=== PATIENT | female | born 1945 | race Caucasian/White ===

== ENCOUNTER 2021-12-09 18:12 | Emergency (ER) | payer MEDICARE, OTHER ==
[~2021-12-09] VITALS: Ht 152.4 cm; Wt 76.4 kg
[2021-12-09 18:45] VITALS: BP 197/78
[2021-12-09] MEDS ORDERED: TETanus/Pertussis (Acell)/Diphther VAC/PF (Tdap-Adult) 0.5ml syringe IMVAC ONE (19:00)
== END 2021-12-09 19:47 | disposition home or self-care (01) ==
LOC: ER 18:31
DX: S61.432A Puncture wound without foreign body of left hand, initial encounter (principal); W45.8XXA Other foreign body or object entering through skin, initial encounter; Y93.89 Activity, other specified; Y92.89 Other specified places as the place of occurrence of the external cause; Y99.8 Other external cause status
CPT/HCPCS: 90471; 90715; 99283